=== PATIENT | female | born 1985 | race Caucasian/White ===

== ENCOUNTER 2021-10-24 08:38 | Outpatient (CLI) | payer SELFPAY ==
[2021-10-24 11:10] LABS: Cholesterol* 220 mg/dL (90-199); HDL Cholesterol* 69 mg/dL (>=50); LDL Cholesterol Calculated 133 mg/dL (<100); Triglycerides* 89 mg/dL (40-149)
== END 2021-10-24 08:39 | disposition home or self-care (01) ==
LOC: NFLDREF 08:38
PROVIDERS: PCP Nurse Practitioner Family; Visit Provider Registered Nurse
DX: Z01.419 Encounter for gynecological examination (general) (routine) without abnormal findings (principal); Z13.6 Encounter for screening for cardiovascular disorders
CPT/HCPCS: 80061